=== PATIENT | male | born 1970 | race Caucasian/White ===

== ENCOUNTER 2019-09-20 12:44 | Emergency (ER) | payer OTHER ==
[2019-09-20 12:54] VITALS: BP 121/71; PULSE 64; TEMP 98; BMI 36.6
[2019-09-20] MEDS ORDERED: IBUPROFEN 400 MG TABLET (FP) PO ONE ×2 (13:46→14:30)
--- NOTE | 2019-09-20 13:46 | PDOC ---
History of Present Illness - General Chief Complaint: Pain Stated Complaint: FOOT PAIN Time Seen by Provider: 09/20/19 13:23 History Source: Patient - History of Present Illness Initial Comments: 09/20/19 13:47 49-year-old male complaining of bilateral heel pain worsening over the last 3 to 4 months. 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 Denies trauma/injuries.denies taking meds for pain Past History - Past Medical History Allergies/Adverse Reactions: Allergies Allergy/AdvReac Type Severity Reaction Status Date / Time No Known Allergies Allergy Verified 09/20/19 12:54 COPD: No - Psycho Social/Smoking Cessation Hx Smoking History: Never smoked Review of Systems - Review of Systems Able to Perform ROS?: Yes Is the patient limited [place] proficient: No Musculoskeletal: Yes: Other (b/l heel pain) *Physical Exam - Vital Signs Last Vital Signs Temp Pulse Resp BP Pulse Ox 98 F 64 18 121/71 98 09/20/19 12:51 09/20/19 12:51 09/20/19 12:51 09/20/19 12:51 09/20/19 12:51 - Physical Exam General Appearance: Yes: Appropriately Dressed Extremity: positive: Other (b/l dryness to sole of feet. no heel swelling) Integumentary: positive: Normal Color, Dry, Warm Neurologic: positive: Fully Oriented, Alert ED Progress Note - Progress Note Progress Note: 09/20/19 14:19 A: heel pain P: ibuprofen Discharge - Discharge Information Problems reviewed: Yes Clinical Impression/Diagnosis: Heel pain, bilateral Disposition: HOME - Follow up/Referral Referrals: Mariella Merida MD [Primary Care Provider] - [place] DPM [Staff Physician] - Call tomorrow Maia Gaona DPM [Staff Physician] - Call tomorrow - Patient Discharge Instructions Additional Instructions: take ibuprofen every 6 hours as needed for pain follow up with a school based therapist as soon as possible. - Post Discharge Activity Work/Back to School Note: Back to Work
== END 2019-09-20 14:34 | disposition home or self-care (01) ==
LOC: JERFT 12:44
DX: M79.672 Pain in left foot (principal); M79.671 Pain in right foot
CPT/HCPCS: 99281-25

== ENCOUNTER 2025-07-14 11:15 | Emergency (ER) | payer OTHER ==
[2025-07-14 11:48] VITALS: BP 121/76; PULSE 58; RESP 18; TEMP 98.6; BMI 36.6
[2025-07-14] MEDS ORDERED: IBUPROFEN 600 MG TABLET (FP) PO ONE (13:23)
[2025-07-14] MEDS ORDERED: BACITRACIN ZINC 15 GM TUBE TOPICAL OINTMENT ONE (13:23)
[2025-07-14] MEDS ORDERED: DIPHTH,PERTUSS(ACELL),TET 0.5 ML DISP.SYRIN IM ONE (13:24)
[2025-07-14] MEDS: DIPHTH,PERTUSS(ACELL),TET 0.5 ML DISP.SYRIN IM ONE (13:31)
[2025-07-14] MEDS: BACITRACIN ZINC 15 GM TUBE TOPICAL OINTMENT TP ONE (13:31)
[2025-07-14] MEDS: IBUPROFEN 600 MG TABLET (FP) PO ONE (13:32)
== END 2025-07-14 13:52 | disposition home or self-care (01) ==
LOC: JERFT 11:15
PROC: 3E0234Z Introduction of Serum, Toxoid and Vaccine into Muscle, Percutaneous Approach (ICD-10-PCS; principal; 2025-07-14)
DX: T23.202A Burn of second degree of left hand, unspecified site, initial encounter (principal); Z23 Encounter for immunization; W86.8XXA Exposure to other electric current, initial encounter; X08.8XXA Exposure to other specified smoke, fire and flames, initial encounter
CPT/HCPCS: 90471; 90715; 99284-25